=== PATIENT | male | born 1940 | race Caucasian/White ===

== ENCOUNTER → 2018-01-31 | Outpatient (CLI) | payer MEDICARE ==
[~2018-01-31] MED LIST: REGADENOSON 0.4 MG/5 ML SYRINGE ONE
== END | disposition home or self-care (01) ==
LOC: RAD 10:19
PROVIDERS: ATTEND Internal Medicine Cardiovascular Disease
DX: I08.0 Rheumatic disorders of both mitral and aortic valves (principal); I48.1 Persistent atrial fibrillation; I10 Essential (primary) hypertension; E78.5 Hyperlipidemia, unspecified
CPT/HCPCS: 78452; 93017; 93306; A9502; J2785

== ENCOUNTER → 2018-06-06 | Outpatient (CLI) | payer MEDICARE ==
[~2018-06-06] MED LIST changes: +APIX5TAB PO; +FLEC100T PO; +FLUV80TA PO; +LOSA1TAB25 PO; -REGADENOSON 0.4 MG/5 ML SYRINGE ONE; +SERT50TA5 PO
== END | disposition home or self-care (01) ==
LOC: RAD 16:14
PROVIDERS: ATTEND Orthopaedic Surgery
DX: R22.41 Localized swelling, mass and lump, right lower limb (principal)

== ENCOUNTER → 2019-01-03 | Outpatient (CLI) | payer MEDICARE ==
[~2019-01-03] MED LIST changes: +SERT50TA28 PO; -SERT50TA5 PO
[2019-01-03 14:01] LABS: BASOPHILS # (AUTO) 0.03 x10^3/uL (0-0.1); BASOPHILS % (AUTO) 0 % (0-1); EOSINOPHILS # (AUTO) 0.07 x10^3/uL (0-0.4); EOSINOPHILS % (AUTO) 1 % (1-7); LYMPHOCYTES % (AUTO) 32 % (22-44); MD NO; MEAN CORPUSCULAR HEMOGLOBIN 35.1 pg (27.5-34.5); MEAN CORPUSCULAR HGB CONC 34.2 g/dL (33.2-36.2); MEAN CORPUSCULAR VOLUME 102.9 fL (81-97); MEAN PLATELET VOLUME 7.4 fL (7.4-10.4); MONOCYTES # (AUTO) 0.75 x10^3/uL (0.2-0.8); MONOCYTES % (AUTO) 10 % (2-9); NEUTROPHILS # (AUTO) 4.02 x10^3/uL (1.8-6.8); NEUTROPHILS % (AUTO) 56 % (42-75); PLATELET COUNT 239 x10^3/uL (130-400); RED BLOOD COUNT 4.48 x10^6/uL (4.38-5.82); RED CELL DISTRIBUTION WIDTH 12.6 % (9.4-14.8)
[2019-01-03 14:02] LABS: MICROSCOPIC NOT IND
[2019-01-03 14:04] LABS: CULTURE INDICATED? NO
[2019-01-03 14:09] LABS: INTERNATIONAL NORMALIZED RATIO 1.11 (0.93-1.1); PROTHROMBIN TIME 11.7 Seconds (9.6-11.5)
[2019-01-03 14:10] LABS: ALANINE AMINOTRANSFERASE 30 U/L (12-78); ALBUMIN 3.6 g/dL (3.4-5.0); ANION GAP 6 mmol/L (5-15); CALCIUM 9.2 mg/dL (8.5-10.1); CHLORIDE 106 mmol/L (98-107); CREATININE 0.77 mg/dL (0.7-1.3)
[2019-01-03 14:12] LABS: ALKALINE PHOSPHATASE 72 U/L (45-117); BILIRUBIN,TOTAL 0.8 mg/dL (0.2-1.0); TOTAL PROTEIN 7.3 g/dL (6.4-8.2)
== END | disposition home or self-care (01) ==
LOC: LAB 13:41
PROVIDERS: ATTEND Thoracic Surgery (Cardiothoracic Vascular Surgery)
DX: Z01.818 Encounter for other preprocedural examination (principal)
CPT/HCPCS: 36415; 80053; 81003; 85025; 85610; 85730

== ENCOUNTER → 2019-02-12 | Outpatient (CLI) | payer MEDICARE | END | disposition home or self-care (01) | LOC: RAD 09:25 | PROVIDERS: ATTEND Nurse Practitioner Family | DX: I11.9 Hypertensive heart disease without heart failure (principal); I48.1 Persistent atrial fibrillation | CPT/HCPCS: 71046 ==

== ENCOUNTER 2019-02-28 05:50 | Observation (INO) | payer MEDICARE ==
[2019-02-25 11:11] VITALS: BP 155/74
[2019-02-25 11:12] LABS: BASOPHILS # (AUTO) 0.03 x10^3/uL (0-0.1); BASOPHILS % (AUTO) 0 % (0-1); EOSINOPHILS # (AUTO) 0.08 x10^3/uL (0-0.4); EOSINOPHILS % (AUTO) 1 % (1-7); LYMPHOCYTES # (AUTO) 1.56 x10^3/uL (1-3.4); LYMPHOCYTES % (AUTO) 20 % (22-44); MD NO; MEAN CORPUSCULAR HEMOGLOBIN 34.6 pg (27.5-34.5); MEAN CORPUSCULAR HGB CONC 34.2 g/dL (33.2-36.2); MEAN CORPUSCULAR VOLUME 101.3 fL (81-97); MEAN PLATELET VOLUME 7.3 fL (7.4-10.4); MONOCYTES # (AUTO) 0.67 x10^3/uL (0.2-0.8); MONOCYTES % (AUTO) 9 % (2-9); NEUTROPHILS # (AUTO) 5.48 x10^3/uL (1.8-6.8); NEUTROPHILS % (AUTO) 70 % (42-75); PLATELET COUNT 209 x10^3/uL (130-400); RED BLOOD COUNT 4.28 x10^6/uL (4.38-5.82); RED CELL DISTRIBUTION WIDTH 13.4 % (9.4-14.8)
[2019-02-25 11:24] LABS: ALBUMIN 3.6 g/dL (3.4-5.0); ANION GAP 8 mmol/L (5-15); CALCIUM 8.7 mg/dL (8.5-10.1); CHLORIDE 108 mmol/L (98-107)
[2019-02-25 11:30] LABS: ALANINE AMINOTRANSFERASE 28 U/L (12-78); ALKALINE PHOSPHATASE 84 U/L (45-117); BILIRUBIN,TOTAL 0.8 mg/dL (0.2-1.0); CREATININE 0.73 mg/dL (0.7-1.3)
[~2019-02-28] VITALS: Ht 182.9 cm; Wt 121.8 kg
[~2019-02-28 05:50] MED LIST changes: +OXYB5TAB7 PO
[2019-02-28] MEDS ORDERED: SODIUM CHLORIDE 0.9% 1,000 ML IV SCH (06:09)
[2019-02-28] MEDS ORDERED: SUGAMMADEX 200 MG/2 ML IVPush ONE (07:03)
[2019-02-28] MEDS ORDERED: FENTANYL PF 250 MCG/5ML ONE (07:24)
[2019-02-28] MEDS ORDERED: PROTAMINE SULFATE 10 MG/ML, 5ML ONE (08:25)
[2019-02-28] MEDS ORDERED: EPHEDRINE 50 MG/ML, 1ML ONE (08:25)
[2019-02-28] MEDS ORDERED: DEXAMETHASONE 4 MG/ML, 1ML ONE (09:58)
[2019-02-28] MEDS ORDERED: ONDANSETRON 2MG/ML, 2ML ONE (09:58)
[2019-02-28] MEDS ORDERED: LIDOCAINE-MPF 2% ,5ML ONE (09:58)
[2019-02-28] MEDS ORDERED: ROCURONIUM 10MG/ML,5ML ONE (09:58)
[2019-02-28] MEDS ORDERED: PROPOFOL 10 MG/ML, 20ML ONE (09:58)
[2019-02-28] MEDS ORDERED: ACETAMINOPHEN 325 MG TABLET PO PRN ×2 (10:30→11:00)
[2019-02-28] MEDS: APIXABAN 5 MG TABLET PO SCH ×2 (10:30→21:40)
[2019-02-28] MEDS ORDERED: APIXABAN 5 MG TABLET ONE (10:48)
[2019-02-28] MEDS ORDERED: hydrALAzine 20 MG/ML, 1ML IV PRN (11:00)
[2019-02-28] MEDS ORDERED: ALBUTEROL/IPRATROPIUM 2.5MG/0.5MG, 3 ML NPPB PRN (11:00)
[2019-02-28] MEDS ORDERED: FENTANYL PF 100 MCG/2ML IV PRN (11:00)
[2019-02-28] MEDS ORDERED: OXYcodone 5 MG/5 ML ORAL.SOL UDC PO PRN (11:00)
[2019-02-28] MEDS ORDERED: MIDAZOLAM 1 MG/ML, 2ML IV PRN (11:00)
[2019-02-28] MEDS ORDERED: ONDANSETRON 2MG/ML, 2ML IV PRN (11:00)
[2019-02-28] MEDS ORDERED: PROMETHAZINE 25 MG/ML, 1ML IV PRN (11:00)
[2019-02-28 14:00] VITALS: BP 116/72
[2019-02-28 19:52] VITALS: BP 122/57
[2019-02-28] MEDS ORDERED: FLUVASTATIN SODIUM 80 MG PO SCH (21:00)
[2019-02-28] MEDS: OXYBUTYNIN CHLORIDE 5 MG TABLET PO SCH (21:39)
[2019-03-01 01:02] VITALS: BP 124/69
[2019-03-01 06:40] VITALS: BP 132/69
[2019-03-01] MEDS: APIXABAN 5 MG TABLET PO SCH (08:22)
[2019-03-01] MEDS: OXYBUTYNIN CHLORIDE 5 MG TABLET PO SCH (08:23)
[2019-03-01] MEDS ORDERED: HYDROCHLOROTHIAZIDE 12.5 MG CAPSULE PO SCH (09:00)
[2019-03-01] MEDS ORDERED: TEMPLATE NON-FORMULARY MED. (Losartan/Hydrochlorothiazide** (Losartan-Hctz 100-12.5 Mg Tab PO SCH (09:00)
[2019-03-01] MEDS ORDERED: SERTRALINE 50MG TABLET PO SCH (09:00)
[2019-03-01] MEDS ORDERED: LOSARTAN 50MG TABLET PO SCH (09:00)
== END 2019-03-01 13:25 | disposition home or self-care (01) ==
LOC: CACL 05:50 → ORIP 10:11 → 5SO 11:28 → DCLOUNGE 03-01 13:14
PROVIDERS: ADMIT Internal Medicine Cardiovascular Disease; ATTEND Internal Medicine Cardiovascular Disease
DX: I48.91 Unspecified atrial fibrillation (principal); I48.92 Unspecified atrial flutter
CPT/HCPCS: 36415; 71046; 80053; 85025; 85347; 93306; 93655; 93656; 93662; C1730; C1759; C1766; C1893; C1894; C2630; G0378; J1100; J2405; J2704; J2720; J3010; J3490

== ENCOUNTER → 2019-03-20 | Outpatient (CLI) | payer MEDICARE | END | disposition home or self-care (01) | LOC: CFH 10:02 | PROVIDERS: ATTEND Nurse Practitioner Family | DX: I48.1 Persistent atrial fibrillation (principal); J44.9 Chronic obstructive pulmonary disease, unspecified | CPT/HCPCS: 36415; 83880 ==

== ENCOUNTER → 2019-05-14 | Outpatient (CLI) | payer MEDICARE | END | disposition home or self-care (01) | LOC: RAD 12:42 | PROVIDERS: ATTEND Thoracic Surgery (Cardiothoracic Vascular Surgery) | DX: J44.9 Chronic obstructive pulmonary disease, unspecified (principal); R06.02 Shortness of breath | CPT/HCPCS: 71046 ==

== ENCOUNTER 2020-06-03 15:13 | Outpatient (CLI) | payer MEDICARE ==
[~2020-06-03 15:13] MED LIST changes: -FLUV80TA PO; +FLUV80TA2 PO; +OXYB5TAB10 PO; -OXYB5TAB7 PO
== END 2020-06-03 23:59 | disposition home or self-care (01) ==
LOC: RAD 15:13
PROVIDERS: ATTEND Internal Medicine
DX: S06.5X9A Traumatic subdural hemorrhage with loss of consciousness of unspecified duration, initial encounter (principal); G31.9 Degenerative disease of nervous system, unspecified; W19.XXXA Unspecified fall, initial encounter; Y93.89 Activity, other specified; Y92.89 Other specified places as the place of occurrence of the external cause; Y99.8 Other external cause status
CPT/HCPCS: 70450

== ENCOUNTER 2020-06-18 16:17 | Emergency (ER) | payer MEDICARE ==
[~2020-06-18] VITALS: Ht 182.9 cm; Wt 118.0 kg
[2020-06-18] MEDS ORDERED: FESO8TAB PO (16:45)
--- NOTE | 2020-06-18 16:48 | NUR ---
BREAK RN: THIS IS A 79 YO MALE COMING IN FOR "I FEEL LIKE I'M IN A FIB. IT STARTED A FEW DAYS AGO." PATIENT HAS HX OF AFIB, NO PACEMAKER BUT HAS HOME MONITOR DEVICE FOR RHYTHM CHECK. PATIENT IS NOT CURRENTLY TAKING ANY BLOOD THINNERS. A&OX4, ALL MONITORING IN PLACE, AFIB ON MEAL COOKER WITH HR IN 90'S. PATIENT IS DIAPHORETIC, DENIES CHEST PAIN/SOB. VSABDIRAHMAN LedesmaN. CALL LIGHT IN REACH. AGUS JOHANSEN TO ROOM FOR EVAL.
--- NOTE | 2020-06-18 17:08 | NUR ---
PT RESTING ON GURNEY. RAMIREZ VSS. REPORT FROM HARRIETT GARG.
[2020-06-18 17:09] LABS: BASOPHILS # (AUTO) 0.04 x10^3/uL (0-0.1); BASOPHILS % (AUTO) 0 % (0-1); EOSINOPHILS # (AUTO) 0.07 x10^3/uL (0-0.4); EOSINOPHILS % (AUTO) 1 % (1-7); LYMPHOCYTES # (AUTO) 1.82 x10^3/uL (1-3.4); LYMPHOCYTES % (AUTO) 20 % (22-44); MD NO; MEAN CORPUSCULAR HEMOGLOBIN 33.8 pg (27.5-34.5); MEAN PLATELET VOLUME 7.4 fL (7.4-10.4); MONOCYTES # (AUTO) 0.97 x10^3/uL (0.2-0.8); MONOCYTES % (AUTO) 11 % (2-9); NEUTROPHILS # (AUTO) 6.13 x10^3/uL (1.8-6.8); NEUTROPHILS % (AUTO) 68 % (42-75); PLATELET COUNT 287 x10^3/uL (130-400); RED BLOOD COUNT 4.47 x10^6/uL (4.38-5.82); RED CELL DISTRIBUTION WIDTH 13.3 % (9.4-14.8)
[2020-06-18 17:11] LABS: ALBUMIN 3.2 g/dL (3.4-5.0); ANION GAP 9 mmol/L (5-15); CALCIUM 8.6 mg/dL (8.5-10.1); CHLORIDE 107 mmol/L (98-107)
[2020-06-18 17:17] LABS: ALANINE AMINOTRANSFERASE 45 U/L (12-78); ALKALINE PHOSPHATASE 95 U/L (45-117); BILIRUBIN,TOTAL 0.4 mg/dL (0.2-1.0); CREATININE 1.01 mg/dL (0.7-1.3); TOTAL PROTEIN 7.3 g/dL (6.4-8.2); TROPONIN I < 0.015 ng/mL (0.000-0.045)
--- NOTE | 2020-06-18 17:36 | NUR ---
PT CHART REVIEWED AND PLACED FOR RECHECK.
[2020-06-18 18:41] VITALS: BP 130/70
--- NOTE | 2020-06-18 18:42 | NUR ---
PT RESTING ON GURNEY. NADN. GOETZ.
== END 2020-06-18 18:56 | disposition home or self-care (01) ==
LOC: ED 18:41
DX: I48.0 Paroxysmal atrial fibrillation (principal); R00.0 Tachycardia, unspecified; I10 Essential (primary) hypertension
CPT/HCPCS: 36415; 71045; 80053; 84484; 85025; 93005; 99285

== ENCOUNTER 2020-07-02 11:49 | Day surgery (SDC) | payer MEDICARE ==
[~2020-07-02] VITALS: Ht 182.9 cm; Wt 113.6 kg
[~2020-07-02 11:49] MED LIST changes: +FESO8TAB PO
[2020-07-02 12:00] VITALS: BP 158/66
[2020-07-02] MEDS ORDERED: FLUT1BLS3 IH (12:11)
[2020-07-02] MEDS ORDERED: OXYB5TAB10 PO (12:11)
[2020-07-02] MEDS ORDERED: PRED20TA PO (12:11)
[2020-07-02] MEDS ORDERED: IRBE1TAB13 PO (12:11)
[2020-07-02] MEDS ORDERED: ALBU90AE INH (12:11)
[2020-07-02] MEDS ORDERED: MONT10TA11 PO (12:11)
[2020-07-02] MEDS ORDERED: PRED10TA PO (12:11)
[2020-07-02] MEDS ORDERED: MIRA50TA PO (12:11)
[2020-07-02 12:31] LABS: BASOPHILS # (AUTO) 0.02 x10^3/uL (0-0.1); BASOPHILS % (AUTO) 0 % (0-1); EOSINOPHILS % (AUTO) 1 % (1-7); LYMPHOCYTES # (AUTO) 1.43 x10^3/uL (1-3.4); LYMPHOCYTES % (AUTO) 22 % (22-44); MD NO; MEAN CORPUSCULAR HGB CONC 33.5 g/dL (33.2-36.2); MEAN CORPUSCULAR VOLUME 101.5 fL (81-97); MEAN PLATELET VOLUME 7.3 fL (7.4-10.4); MONOCYTES # (AUTO) 0.57 x10^3/uL (0.2-0.8); MONOCYTES % (AUTO) 9 % (2-9); NEUTROPHILS # (AUTO) 4.51 x10^3/uL (1.8-6.8); NEUTROPHILS % (AUTO) 68 % (42-75); PLATELET COUNT 214 x10^3/uL (130-400); RED BLOOD COUNT 4.26 x10^6/uL (4.38-5.82); RED CELL DISTRIBUTION WIDTH 13.4 % (9.4-14.8)
[2020-07-02 12:41] LABS: ANION GAP 9 mmol/L (5-15); CALCIUM 9.7 mg/dL (8.5-10.1); CHLORIDE 109 mmol/L (98-107); CREATININE 0.71 mg/dL (0.7-1.3)
== END 2020-07-02 12:52 | disposition home or self-care (01) ==
LOC: CACL 11:49
PROVIDERS: ATTEND Internal Medicine Cardiovascular Disease
DX: I48.91 Unspecified atrial fibrillation (principal); E78.5 Hyperlipidemia, unspecified; I11.9 Hypertensive heart disease without heart failure; M81.0 Age-related osteoporosis without current pathological fracture; G47.33 Obstructive sleep apnea (adult) (pediatric); J44.9 Chronic obstructive pulmonary disease, unspecified; M17.11 Unilateral primary osteoarthritis, right knee; Z79.899 Other long term (current) drug therapy; Z88.0 Allergy status to penicillin; Z85.828 Personal history of other malignant neoplasm of skin; Z72.89 Other problems related to lifestyle; Z87.891 Personal history of nicotine dependence; Z98.890 Other specified postprocedural states; Z79.01 Long term (current) use of anticoagulants
CPT/HCPCS: 36415; 80048; 85025; 92960

== ENCOUNTER → 2020-07-30 | Outpatient (CLI) | payer MEDICARE ==
[~2020-07-30] MED LIST changes: +ALBU90AE INH; +FLUT1BLS3 IH; +IRBE1TAB13 PO; +MIRA50TA PO; +MONT10TA11 PO; +PRED10TA PO; +PRED20TA PO
== END | disposition home or self-care (01) ==
LOC: CVU 06:40
PROVIDERS: ATTEND Nurse Practitioner Family
DX: I65.23 Occlusion and stenosis of bilateral carotid arteries (principal); I73.9 Peripheral vascular disease, unspecified; H53.8 Other visual disturbances
CPT/HCPCS: 93880; 93922

== ENCOUNTER → 2020-12-01 | Outpatient (CLI) | payer MEDICARE ==
[~2020-12-01] MED LIST changes: -MONT10TA11 PO; +MONT10TA96 PO
== END | disposition home or self-care (01) ==
LOC: OUT 13:29
PROVIDERS: ATTEND Internal Medicine
DX: Z20.828 Contact with and (suspected) exposure to other viral communicable diseases (principal)
CPT/HCPCS: 87635

== ENCOUNTER 2020-12-04 08:36 | Day surgery (SDC) | payer MEDICARE ==
[~2020-12-04] VITALS: Ht 182.9 cm; Wt 119.1 kg
[~2020-12-04 08:36] MED LIST changes: +OPIUM/BELLADONNA SUPP.RECT 16.2-60 MG ONE
[2020-12-04] MEDS ORDERED: CHLORHEXIDINE 15 ML UDC MM ONE (09:30)
[2020-12-04] MEDS ORDERED: LACTATED RINGERS 1,000 ML IV SCH (09:30)
[2020-12-04 09:38] VITALS: BP 145/72
[2020-12-04] MEDS ORDERED: MIDAZOLAM 1 MG/ML, 2ML ONE (09:47)
[2020-12-04] MEDS ORDERED: FENTANYL PF 250 MCG/5ML ONE (09:47)
[2020-12-04 10:00] LABS: INTERNATIONAL NORMALIZED RATIO 1.04 (0.93-1.1)
[2020-12-04] MEDS ORDERED: PROPOFOL 10 MG/ML, 20ML ONE (10:40)
[2020-12-04] MEDS ORDERED: CEFAZOLIN 1,000 MG ONE (10:40)
[2020-12-04] MEDS ORDERED: LIDOCAINE-MPF 2% ,5ML ONE (10:40)
[2020-12-04] MEDS ORDERED: ONDANSETRON 2MG/ML, 2ML ONE (10:40)
[2020-12-04] MEDS ORDERED: NEOSTIGMINE 1 MG/ML, 10ML ONE (10:40)
[2020-12-04] MEDS ORDERED: ROCURONIUM 10MG/ML,5ML ONE (10:40)
[2020-12-04] MEDS ORDERED: GLYCOPYRROLATE 0.2MG/1ML, 5ML ONE (10:40)
[2020-12-04] MEDS ORDERED: LABETALOL 5MG/ML, 20ML IV PRN (12:00)
[2020-12-04] MEDS ORDERED: ONDANSETRON 2MG/ML, 2ML IVPush PRN (12:00)
[2020-12-04] MEDS ORDERED: DIPHENHYDRAMINE 50 MG/ML, 1ML IVPush PRN (12:00)
[2020-12-04] MEDS ORDERED: ACETAMINOPHEN 325 MG TABLET PO PRN (12:00)
[2020-12-04] MEDS ORDERED: MEPERIDINE/PF 25MG/0.5ML IVPush PRN (12:00)
[2020-12-04] MEDS ORDERED: HYDROmorphone 1 MG/ML, 1ML INJ IVPush PRN (12:00)
[2020-12-04] MEDS ORDERED: PROMETHAZINE 25 MG/ML, 1ML IVPush PRN (12:00)
[2020-12-04] MEDS ORDERED: FENTANYL PF 100 MCG/2ML IV PRN (12:00)
[2020-12-04] MEDS ORDERED: OXYcodone 5 MG/5 ML ORAL.SOL UDC PO PRN (12:00)
[2020-12-04] MEDS ORDERED: hydrALAzine 20 MG/ML, 1ML IV PRN (12:00)
== END 2020-12-04 15:10 | disposition home or self-care (01) ==
LOC: OUT 08:36
PROVIDERS: ATTEND Student in an Organized Health Care Education/Training Program
DX: N40.1 Benign prostatic hyperplasia with lower urinary tract symptoms (principal); N39.41 Urge incontinence; N32.81 Overactive bladder; I10 Essential (primary) hypertension; E78.5 Hyperlipidemia, unspecified; Z79.01 Long term (current) use of anticoagulants; Z79.899 Other long term (current) drug therapy; Z88.0 Allergy status to penicillin
CPT/HCPCS: 36415; 52648; 85610; 93005; J0690; J2250; J2405; J2704; J2710; J3010

== ENCOUNTER 2021-08-13 09:00 | Day surgery (SDC) | payer MEDICARE ==
[~2021-08-13] VITALS: Ht 185.4 cm; Wt 114.9 kg
[~2021-08-13 09:00] MED LIST changes: +MONT10TA17 PO; -MONT10TA96 PO; -OPIUM/BELLADONNA SUPP.RECT 16.2-60 MG ONE
[2021-08-13 09:46] VITALS: BP 122/72
[2021-08-13] MEDS ORDERED: CHLORHEXIDINE 15 ML UDC PO ONE (10:00)
[2021-08-13] MEDS ORDERED: LACTATED RINGERS 1,000 ML IV SCH (10:00)
[2021-08-13 10:26] LABS: BASOPHILS % (AUTO) 0 % (0-1); EOSINOPHILS % (AUTO) 2 % (1-7); LYMPHOCYTES % (AUTO) 21 % (22-44); MEAN CORPUSCULAR HEMOGLOBIN 34.6 pg (27.5-34.5); MEAN CORPUSCULAR HGB CONC 34.9 g/dL (33.2-36.2); MEAN PLATELET VOLUME 7.2 fL (7.4-10.4); MONOCYTES % (AUTO) 10 % (2-9); NEUTROPHILS % (AUTO) 67 % (42-75); PLATELET COUNT 210 x10^3/uL (130-400); RED BLOOD COUNT 4.27 x10^6/uL (4.38-5.82); RED CELL DISTRIBUTION WIDTH 12.8 % (9.4-14.8)
[2021-08-13 10:36] LABS: INTERNATIONAL NORMALIZED RATIO 1.05 (0.93-1.1); PROTHROMBIN TIME 11.2 Seconds (9.6-11.5)
[2021-08-13 10:37] LABS: ANION GAP 10 mmol/L (5-15); CALCIUM 8.6 mg/dL (8.5-10.1); CHLORIDE 107 mmol/L (98-107); CREATININE 0.64 mg/dL (0.7-1.3)
[2021-08-13 10:53] LABS: MICROSCOPIC NOT IND
[2021-08-13] MEDS ORDERED: ONABOTULINUMTOXINA 100 UNITS IM ONE (12:00)
[2021-08-13] MEDS ORDERED: FENTANYL PF 100 MCG/2ML ONE (12:15)
[2021-08-13] MEDS ORDERED: HYDROmorphone 1 MG/ML, 1ML INJ IVPush PRN (13:00)
[2021-08-13] MEDS ORDERED: ONDANSETRON 2MG/ML, 2ML IVPush PRN (13:00)
[2021-08-13] MEDS ORDERED: ACETAMINOPHEN 325 MG TABLET PO PRN (13:00)
[2021-08-13] MEDS ORDERED: hydrALAzine 20 MG/ML, 1ML IV PRN (13:00)
[2021-08-13] MEDS ORDERED: OXYcodone 5 MG/5 ML ORAL.SOL UDC PO PRN (13:00)
[2021-08-13] MEDS ORDERED: FENTANYL PF 100 MCG/2ML IV PRN (13:00)
[2021-08-13] MEDS ORDERED: DIAZEPAM 5 MG/ML, 2ML IVPush PRN (13:00)
[2021-08-13] MEDS ORDERED: LABETALOL 5MG/ML, 20ML IV PRN (13:00)
[2021-08-13] MEDS ORDERED: MEPERIDINE/PF 25MG/0.5ML IVPush PRN (13:00)
== END 2021-08-13 14:30 | disposition home or self-care (01) ==
LOC: OUT 09:00
PROVIDERS: ATTEND Student in an Organized Health Care Education/Training Program
DX: N32.0 Bladder-neck obstruction (principal); N32.81 Overactive bladder; N39.41 Urge incontinence; J45.909 Unspecified asthma, uncomplicated; I10 Essential (primary) hypertension; E78.5 Hyperlipidemia, unspecified; I48.91 Unspecified atrial fibrillation; Z20.822 Contact with and (suspected) exposure to COVID-19; Z79.01 Long term (current) use of anticoagulants; Z79.82 Long term (current) use of aspirin; Z79.899 Other long term (current) drug therapy; Z87.891 Personal history of nicotine dependence; Z88.0 Allergy status to penicillin; Z90.79 Acquired absence of other genital organ(s); Z82.49 Family history of ischemic heart disease and other diseases of the circulatory system
CPT/HCPCS: 36415; 52276; 52287; 80048; 81003; 85025; 85610; 87635; 93005; J0585; J3010; J7120